=== PATIENT | male | born 1945 ===

== ENCOUNTER → 2019-01-15 | Outpatient (CLI) | payer OTHER ==
[~2019-01-15] MED LIST: CATAFLAM50 MG PO; FIORICET TABLET1 TAB; ORPH100T PO
== END | disposition home or self-care (01) ==
LOC: SONOGRAMA 11:03
DX: R10.11 Right upper quadrant pain (principal)

== ENCOUNTER → 2019-03-28 | Emergency (ER) | payer OTHER ==
[~2019-03-28] VITALS: Ht 157.5 cm; Wt 59.0 kg
[~2019-03-28] MED LIST changes: +GARAMYCIN OPHT3.5 GM OP; +MOBIC15 MG PO; +PROSCAR5 MG
== END | disposition home or self-care (01) ==
LOC: ER 20:17
DX: M54.5 Low back pain (principal); H10.12 Acute atopic conjunctivitis, left eye

== ENCOUNTER 2019-03-29 01:35 | Emergency (ER) | payer OTHER ==
[~2019-03-29] VITALS: Ht 157.5 cm; Wt 57.6 kg
[~2019-03-29 01:35] MED LIST changes: -GARAMYCIN OPHT3.5 GM OP; -MOBIC15 MG PO; -PROSCAR5 MG
[2019-03-29] MEDS ORDERED: PROSCAR5 MG (01:49)
[2019-03-29] MEDS ORDERED: GARAMYCIN OPHT3.5 GM OP (03:15)
[2019-03-29] MEDS ORDERED: MOBIC15 MG PO (03:15)
== END 2019-03-29 03:18 | disposition home or self-care (01) ==
LOC: ER 01:35
DX: M54.5 Low back pain (principal); K29.60 Other gastritis without bleeding